=== PATIENT | female | born 2000 | race Two or more races ===

== ENCOUNTER 2022-10-09 03:09 | Emergency (ER) | payer OTHER ==
[~2022-10-09] VITALS: Ht 162.6 cm; Wt 52.2 kg
[2022-10-09] MEDS ORDERED: ACID CONTROLLER10 MG (03:27)
[2022-10-09] MEDS ORDERED: PRILOSEC OTC20 MG (03:27)
[2022-10-09] MEDS ORDERED: ZYNCOF 20-400120 ML PO (05:51)
[2022-10-09] MEDS ORDERED: PHENAGIL TABLE1 EACH PO (05:51)
== END 2022-10-09 06:14 ==
LOC: ER 03:09
DX: J06.9 Acute upper respiratory infection, unspecified (principal); Z20.822 Contact with and (suspected) exposure to COVID-19